=== PATIENT | female | born 1965 | race Caucasian/White ===

== ENCOUNTER 2017-06-23 08:53 | Day surgery (SDC) | payer BC ==
[~2017-06-23] VITALS: Ht 152.4 cm; Wt 92.2 kg
[~2017-06-23 08:53] MED LIST: HYDACE5 PO; HYDMOR4 PO; METCAR500 PO; NAPR500 PO; OXYACE5T PO; TRAM50 PO; Zofran Odt4 MG SL
[2017-06-23] MEDS ORDERED: SUMA25 PO (09:35)
== END 2017-06-23 12:42 | disposition home or self-care (01) ==
LOC: ORSCSDS 08:53
DX: S83.241A Other tear of medial meniscus, current injury, right knee, initial encounter (principal); M22.41 Chondromalacia patellae, right knee; Z79.899 Other long term (current) drug therapy
CPT/HCPCS: J0171; J0690; J1100; J2250; J2405; J2765; J2795; J3010

== ENCOUNTER → 2020-04-20 | Outpatient (CLI) | payer BC ==
[~2020-04-20] MED LIST changes: +SUMA25 PO
== END | disposition home or self-care (01) ==
LOC: LAB SHORT 16:46 → PLD 16:46
DX: R30.9 Painful micturition, unspecified (principal)
CPT/HCPCS: 87086

== ENCOUNTER → 2021-03-11 | Outpatient (CLI) | payer BC | END | disposition home or self-care (01) | LOC: LAB SHORT 11:25 | DX: D36.10 Benign neoplasm of peripheral nerves and autonomic nervous system, unspecified (principal) | CPT/HCPCS: 88304 ==

== ENCOUNTER 2024-07-21 06:28 | Day surgery (SDC) | payer OTHER, BC ==
[2024-07-21] VITALS (9 sets, daily range): BP systolic 114–129; BP diastolic 57–80
[~2024-07-21] VITALS: Ht 153 cm; Wt 89.9 kg
[~2024-07-21 06:28] MED LIST changes: +ALEN70 PO; +CeFAZolin Sodium 2,000 MG in NS 100 ML IV SCH; +HYDROXYCHLOROQ100 MG PO; +Lactated Ringer's 1,000 ML IV SCH; +QULIPTA30 MG PO; +UBRELVY100 MG PO; +VIT D3-VIT K21 EACH PO
[2024-07-21] MEDS ORDERED: TOPI50 PO (06:29)
[2024-07-21] MEDS ORDERED: Tranexamic Acid 100 ML IV SCH (06:35)
[2024-07-21] MEDS ORDERED: Midazolam HCl 1MG / ML 2ML Vial ONE (07:07)
[2024-07-21] MEDS ORDERED: FentaNYL Citrate 50 MCG/ML 2 ML Injection ONE (07:07)
[2024-07-21] MEDS ORDERED: propofoL 20 ML IV ONE (07:09)
[2024-07-21] MEDS ORDERED: EPINEPhrine HCl 1 MG / ML 30ML Vial ONE (07:18)
--- NOTE | 2024-07-21 07:50 | NUR ---
History, Chart, Medications and Allergies reviewed before start of procedure. Patient States Post-Procedure ride home has been arranged. INTERSCALENE NERVE BLOCK PERFORMED IN [facility] 0724: TIME OUT 0726: 2MG VERSED & 50MCG FENTANYL IVP ADMINISTERED BY ANESTHESIOLOGIST 0731: PROCEDURE START 0734: PROCEDURE END PULSE OX & BP ON THROUGHOUT PROCEDURE, ROOM AIR, VSS. PT TOLERATED PROCEDURE WELL, NO ISSUES OR COMPLICATIONS.
[2024-07-21] MEDS ORDERED: Lidocaine 1%-Epineph 1:100000 20 ML MDV INJ ONE (08:30)
[2024-07-21] MEDS ORDERED: FentaNYL Citrate 50 MCG/ML 2 ML Injection IV PRN ×2 (08:35→08:40)
[2024-07-21] MEDS ORDERED: HYDROmorphone HCl/Pf 1MG SYR IV PRN ×2 (08:35)
[2024-07-21] MEDS ORDERED: Ondansetron HCl 2 MG / ML 2ML Vial IV PRN (08:40)
[2024-07-21] MEDS ORDERED: Sugammadex Sodium 200 MG/2ML SDV (100 MG/ML) ONE (09:01)
[2024-07-21] MEDS ORDERED: OxyCODONE HCL 5 MG TAB PO PRN (09:30)
--- NOTE | 2024-07-21 10:32 | NUR ---
Discharge instructions reviewed with patient. Patient verbalizes understanding. Copy given to patient to take home. Dressing c/d/i. Polar pack sent with . Prescription electonically placed. Sling in place. Patient States Post-Procedure ride home has been arranged. Discharged via wheelchair to private car for ride home.
== END 2024-07-21 23:00 | disposition home or self-care (01) ==
LOC: ORSCMMR 06:28 → ORD 07:30 → ORSCMMR 23:00 → ORSCSDS 07-26 07:30
PROVIDERS: Orthopaedic Surgery Sports Medicine
PROC: 0PBB4ZZ Excision of Left Clavicle, Percutaneous Endoscopic Approach (ICD-10-PCS; principal; 2024-07-21 07:30)
PROC: 0RBK4ZZ Excision of Left Shoulder Joint, Percutaneous Endoscopic Approach (ICD-10-PCS; principal; 2024-07-21 07:30)
DX: M75.22 Bicipital tendinitis, left shoulder (principal); M75.102 Unspecified rotator cuff tear or rupture of left shoulder, not specified as traumatic; M24.012 Loose body in left shoulder; M13.812 Other specified arthritis, left shoulder; M79.7 Fibromyalgia; W18.09XA Striking against other object with subsequent fall, initial encounter; Z79.899 Other long term (current) drug therapy
CPT/HCPCS: A9270; J0171; J0690; J2250; J2704; J3010; J7120

== ENCOUNTER → 2024-10-06 | Outpatient (CLI) | payer BC ==
[~2024-10-06] MED LIST changes: -CeFAZolin Sodium 2,000 MG in NS 100 ML IV SCH; -Lactated Ringer's 1,000 ML IV SCH; +TOPI50 PO
== END ==
LOC: LAB SHORT 10:21 → LAB 10:21
DX: N39.0 Urinary tract infection, site not specified (principal)
CPT/HCPCS: 87077; 87086; 87186